=== PATIENT | female | born 1970 | race Caucasian/White ===

== ENCOUNTER → 2016-08-04 | Outpatient (CLI) | payer MEDICAID ==
[2016-08-04 14:18] LABS: HEMOGLOBIN 12.3 g/dL (12.2-16.2); LYMPH # 1.4 K/mm3 (0.7-4.5); LYMPH % 21.9 % (10-50.0)
[2016-08-04 14:28] LABS: BUN 10 mg/dL (7-18); FREE THYROXIN INDEX 2.8 ug/dl (5.93-13.13)
[2016-08-04 15:04] LABS: GFR (ESTIMATED) 77 ML/MIN (59-)
[2016-08-05 08:55] LABS: Thyroid Peroxidase (TPO) Ab 16 IU/mL (0-34)
[2016-08-05 12:36] LABS: Thyroglobulin Antibody <1.0 IU/mL (0.0-0.9)
== END ==
LOC: CARL-LAB 08:38
PROVIDERS: Nurse Practitioner Family; Physician Assistant
DX: G47.30 Sleep apnea, unspecified (principal); R53.83 Other fatigue; R06.02 Shortness of breath; R60.9 Edema, unspecified; R63.5 Abnormal weight gain